=== PATIENT | male | born 1955 | race Caucasian/White ===

== ENCOUNTER → 2018-11-02 | Outpatient (REF) | payer MEDICARE ==
[~2018-11-02] MED LIST: DEPO-MEDROL80 MG/ML IM; EQ ASA CHLD81 MG PO; FLEXERIL PO; FLEXERIL5 M1 PO; GNC POTASSIUM595 MG PO; LIPITOR10 MG PO; MAGNESIUM250 M3 PO; METAMUCIL0.52 G1 PO; METFORMIN500 MG PO; NO MEDICATIONS; RANITIDINE150 M1 PO; TRAMADOL HCL50 MG PO; VITAMIN D35000 UNI2 PO; ZYRTEC10 M5 PO; [UNRECOGNIZED DRUG - OTHER] PO
== END | disposition home or self-care (01) ==
LOC: STRESS 08:55 → NUCMED 09:00
PROVIDERS: ATTEND Internal Medicine
DX: I20.9 Angina pectoris, unspecified (principal); I25.10 Atherosclerotic heart disease of native coronary artery without angina pectoris
CPT/HCPCS: A9502; J0706; J2785

== ENCOUNTER 2021-05-28 07:42 | Day surgery (SDC) | payer MEDICARE ==
[~2021-05-28 07:42] MED LIST changes: +CENTRUM SILVER1 TA2 PO; +GARLIC PO; +JARDIANCE25 MG PO; +METFORMIN500 M2 PO; +PANTOPRAZOLE SO40 M3 PO; +VITAMIN D325 MCG PO
[2021-05-28 09:47] VITALS: BP 125/77
== END 2021-05-28 10:08 | disposition home or self-care (01) ==
LOC: ENDO 07:42
PROVIDERS: ATTEND Surgery
PROC: 0DJD8ZZ Inspection of Lower Intestinal Tract, Via Natural or Artificial Opening Endoscopic (ICD-10-PCS; principal; 2021-05-28)
DX: Z12.11 Encounter for screening for malignant neoplasm of colon (principal); K57.30 Diverticulosis of large intestine without perforation or abscess without bleeding; I10 Essential (primary) hypertension; E11.9 Type 2 diabetes mellitus without complications; K21.9 Gastro-esophageal reflux disease without esophagitis; E78.00 Pure hypercholesterolemia, unspecified; Z86.010 Personal history of colon polyps

== ENCOUNTER 2021-11-29 10:20 | Observation (INO) | payer MEDICARE ==
[~2021-11-29] VITALS: Ht 172.7 cm; Wt 100.0 kg
[2021-11-29] VITALS (69 sets, daily range): BP systolic 93–147; BP diastolic 61–98
[2021-11-29 11:24] LABS: HEMATOCRIT 51.8 % (39.0-50.0); HEMOGLOBIN 16.5 g/dl (14.0-18.0); IMMATURE GRANULOCYTES 0.2 % (0.0-5.0); MEAN CELL VOLUME 93.2 fL CALC (80.0-100.0); MEAN CORPUSCULAR HGB 29.7 pG CALC (26.0-32.0); MEAN CORPUSCULAR HGB CONC 31.9 g/dL CAL (32.0-36.0); NEUT# 6.47 thou/uL (1.82-7.42); RED BLOOD COUNT 5.56 mill/uL (4.70-6.10); RED CELL DISTRI WIDTH 14.3 % (11.5-15.5)
[2021-11-29 11:38] LABS: ALBUMIN 4.1 g/dL (3.2-5.0); ALKALINE PHOSPHATASE 102 u/l (38-126); BILIRUBIN, TOTAL 0.6 mg/dL (0.0-1.4); BUN 12 mg/dL (8-23); BUN/CREATININE RATIO 12 (12-20 (CALC)); CHLORIDE 104 mmol/l (95-108); GFR > 60 ML/MIN (>=60 (CALC)); GFR FOR AFR.AMER. > 60 ML/MIN (>=60 (CALC)); MAGNESIUM 1.8 mg/dL (1.6-2.3); POTASSIUM 4.2 mmol/l (3.5-5.1); SGOT/AST 25 u/l (19-48); SODIUM 137 mmol/l (137-146); TOTAL PROTEIN 7.2 g/dL (6.3-8.2)
[2021-11-29 11:40] LABS: ANION GAP 15 (6-22 (CALC)); CARBON DIOXIDE 22 mmol/l (22-30)
[2021-11-29] MEDS ORDERED: CYANOCOBAL1000 MCG/M IJ (12:23)
[2021-11-29] MEDS ORDERED: METFORMIN500 M2 PO (12:24)
== END 2021-11-29 18:10 | disposition home or self-care (01) ==
LOC: ED 10:20 → ED-I 11:50 → ED 12:19 → ED-I 12:20
PROVIDERS: Family Medicine; ADMIT Internal Medicine; ATTEND Internal Medicine
DX: I47.1 Supraventricular tachycardia (principal); I10 Essential (primary) hypertension; E11.9 Type 2 diabetes mellitus without complications; K21.9 Gastro-esophageal reflux disease without esophagitis; Z79.84 Long term (current) use of oral hypoglycemic drugs